=== PATIENT | female | born 1970 | race Caucasian/White ===

== ENCOUNTER 2024-06-26 09:12 | Emergency (ER) | payer SELFPAY ==
[2024-06-26 09:13] VITALS: BP 137/72; PULSE 83; RESP 14; TEMP 36.7; O2SAT 98; BMI 36.4
--- NOTE | 2024-06-26 09:34 | EX.ED.DYSGE1 ---
HPI History of Present Illness Chief Complaint: Rash PFSH PFSH Home Medications ?Medication ?Instructions ?Recorded ?Last Taken ?Type sulfamethoxazole 800 1 tab PO BID 7 days #14 tabs 06/26/24 Unknown Rx mg-trimethoprim 160 mg tablet (Bactrim DS) valacyclovir 1 gram tablet 1,000 mg PO Q8H 7 days #21 tabs 06/26/24 Unknown Rx Allergy/AdvReac Type Severity Reaction Status Date / Time No Known Allergies Allergy Verified 06/26/24 09:13 Social History Smoking Status: Current every day smoker EXAM Physical Exam Const Vital Signs: 06/26/24 09:13 Temperature 98.1 F Temperature Source Oral Pulse Rate 83 Respiratory Rate 14 Blood Pressure 137/72 H Blood Pressure Mean 93 Pulse Ox 98 Oxygen Delivery Method Room Air [facility] MDM [facility] Narrative Medical decision making narrative: HISTORY OF PRESENT ILLNESS: 54-year-old female with no segment past medical history presents with a rash to left side of her face. Notes these are going on for last 4 to 5 days. Notes went to urgent care 2 days ago and was prescribed Keflex for impetigo. She notes a tingling burning sensation. REVIEW OF SYSTEMS: Pertinent positives: Facial rash Pertinent negatives: [] PHYSICAL EXAM: Nursing triage notes reviewed, Vital signs reviewed Constitutional: please see mdm HENT: MMM, rash noted, vesicular, erythematous along the V2 dermatomal distribution. No crepitus, no bullae no fluctuance or induration. No purulence noted. Eyes: Pupils equal round and reactive to light, Extraocular muscles intact, no conjunctival injection Neck: No stridor, no JVD, full neck ROM Lungs: Clear to auscultation, No wheezing or rales. No increased work of breathing, no conversational dyspnea, no accessory muscle use, no nasal flaring. No respiratory distress noted Heart: Regular rate and rhythm, No murmurs, No rubs and No gallops, 2+ distal pulses (radial, femoral, posterior tibial) in all extremities Skin: Erythematous rash noted in the V2 distribution left side of the face does not cross midline MEDICAL DECISION MAKING: Chief Complaint: Facial rash [facility] Narrative: [] The patient was hemodynamically stable, afebrile and nontoxic-appearing. Exam consistent with likely herpes zoster or shingles infection. Cannot rule out secondary bacterial infection. As such we will give valacyclovir and Bactrim. Let the patient discontinue Keflex that is not providing adequate MRSA coverage. Strict return precaution follow-up instructions were discussed. No signs of disseminated zoster at this time as patient was not altered and had n fever. I considered the following differential diagnosis: Impetigo, herpes zoster, disseminated zoster The patient and/or family, caregivers express understanding. The patient and/or family, caregivers agrees with the plan. Shared decision making: I will have a discussion with the patient and or visitors regarding risk/benefits of further testing or admission. They will be made aware of of the risk/benefits inherent in this decision they will be given the opportunity to voice understanding. Total critical care time today provided was at least 0 [] minutes. This excludes separately billable procedures. Critical care time (if documented) is secondary to the patient having high probability of clinically significant/life threatening deterioration in the patient's condition which required my urgent intervention. Impression: 1. Shingles 2. Impetigo Dispo: Discharge home This note was generated with [employer] dictation software. It may contain incorrect words, spelling, and punctuation that were not noted in review of the chart prior to signing. Discharge Plan Triage Chief Complaint: Rash ED Provider: Jose L Horn Dx/Rx/DC Orders Instructions: ED Impetigo, ED Shingles (Herpes Zoster) Prescriptions: New valacyclovir 1 gram tablet 1,000 mg PO Q8H 7 Days Qty: 21 0RF sulfamethoxazole-trimethoprim [Bactrim DS] 800-160 mg tablet 1 tab PO BID 7 Days Qty: 14 0RF Primary Care Provider: LEIDY ROBERTSON Referrals: Naima Mas MD [Med Staff - Hospitalist Program Director] - Activity Restrictions/Additional Instructions: Thank you for trusting us with your care today! Your clinical exam was most consistent with shingles (herpes zoster infection). This is treated with oral antiviral medication called valacyclovir. Has been prescribed. Shingles can predispose you developing a secondary bacterial infection which may be possible. If you do of a bacterial infection most concerning agent would be MRSA ((methicillin resistant Staph aureus) this is best treated with Bactrim which is also been prescribed. Please take all antibiotics antiviral As prescribed until course is complete. Please take Tylenol (2 pills, 650 mg), ibuprofen (2 pills, 400 mg) every 6 hours as needed for pain and fever control. Please return to the emergency department if your symptoms change or worsen. Please follow with your primary care physician for further outpatient evaluation and management. Print Language: Croatian Disposition Disposition: Home, Self Care
[2024-06-26 10:06] VITALS: BP 129/78; PULSE 79; RESP 14; TEMP 36.7; O2SAT 98
== END 2024-06-26 10:28 | disposition home or self-care (01) ==
PROVIDERS: Emergency Provider Emergency Medicine; PCP Nurse Practitioner; Visit Provider Emergency Medicine
DX: B02.9 Zoster without complications (principal); L01.00 Impetigo, unspecified; F17.200 Nicotine dependence, unspecified, uncomplicated
CPT/HCPCS: 99282